=== PATIENT | male | born 1995 | race African-American/Black ===

== ENCOUNTER 2019-01-03 12:21 | Emergency (ER) | payer OTHER ==
--- OUTSIDE RECORDS SUMMARY | 2019-01-03 12:24 | XMS REPORT ---
:1995 Author Organization [facility] Address [address] [place] [address] Care Team Providers Name Role Phone ERIKA MENDOZA Unavailable Unavailable Problems This patient has no known problems. Allergies, Adverse Reactions, Alerts This patient has no known allergies or adverse reactions. Medications This patient has no known medications. Results Test Description Test Time Test Comments Text Results Atomic Results Result Comments CBC W/PLT COUNT & AUTO DIFFERENTIAL 2018-03-29 07:44:00 Test Item Value Reference Range Comments WHITE BLOOD CELL COUNT (BEAKER) (test dqti=911) 7.9 K/ L 3.5-10.5 RED BLOOD CELL COUNT (BEAKER) (test yvth=587) 4.64 M/ L 4.63-6.08 HEMOGLOBIN (BEAKER) (test zyai=148) 13.6 GM/DL 13.7-17.5 HEMATOCRIT (BEAKER) (test tlbb=238) 40.3 % 40.1-51.0 MEAN CORPUSCULAR VOLUME (BEAKER) (test ymum=750) 86.9 fL 79.0-92.2 MEAN CORPUSCULAR HEMOGLOBIN (BEAKER) (test oaow=699) 29.3 pg 25.7-32.2 MEAN CORPUSCULAR HEMOGLOBIN CONC (BEAKER) (test ugmb=883) 33.7 GM/DL 32.3- 36.5 RED CELL DISTRIBUTION WIDTH (BEAKER) (test ybju=152) 12.5 % 11.6-14.4 PLATELET COUNT (BEAKER) (test bcbj=220) 307 K/CU MM 150-450 MEAN PLATELET VOLUME (BEAKER) (test xxzy=040) 9.6 fL 9.4-12.4 NUCLEATED RED BLOOD CELLS (BEAKER) (test bnje=245) 0 /100 WBC 0-0 NEUTROPHILS RELATIVE PERCENT (BEAKER) (test kwib=819) 34 % LYMPHOCYTES RELATIVE PERCENT (BEAKER) (test egpb=026) 51 % MONOCYTES RELATIVE PERCENT (BEAKER) (test yijy=041) 7 % EOSINOPHILS RELATIVE PERCENT (BEAKER) (test dqmv=771) 7 % BASOPHILS RELATIVE PERCENT (BEAKER) (test azst=079) 1 % NEUTROPHILS ABSOLUTE COUNT (BEAKER) (test zztf=777) 2.72 K/ L 1.78-5.38 LYMPHOCYTES ABSOLUTE COUNT (BEAKER) (test ujfs=324) 4.05 K/ L 1.32-3.57 MONOCYTES ABSOLUTE COUNT (BEAKER) (test aian=083) 0.53 K/ L 0.30-0.82 EOSINOPHILS ABSOLUTE COUNT (BEAKER) (test gwqa=845) 0.51 K/ L 0.04-0.54 BASOPHILS ABSOLUTE COUNT (BEAKER) (test jnam=946) 0.07 K/ L 0.01-0.08 IMMATURE GRANULOCYTES-RELATIVE PERCENT (BEAKER) (test 0 % 0-1 rkzj=3969) BASIC METABOLIC [id number] 07:43:00 Test Item Value Reference Range Comments SODIUM (BEAKER) (test 139 meq/L 136-145 bsdv=079) POTASSIUM (BEAKER) (test 4.2 meq/L 3.5-5.1 ilfg=555) CHLORIDE (BEAKER) (test 104 meq/L 98-107 vegr=502) CO2 (BEAKER) (test 27 meq/L 22-29 ddni=049) BLOOD UREA NITROGEN 9 mg/dL 7-21 (BEAKER) (test ofaa=477) CREATININE (BEAKER) (test 0.91 mg/dL 0.57-1.25 oxfv=522) GLUCOSE RANDOM (BEAKER) 88 mg/dL 70-105 (test nbdh=050) CALCIUM (BEAKER) (test 9.3 mg/dL 8.4-10.2 hfxv=808) EGFR (BEAKER) (test 125 mL/min/1.73 sq m ESTIMATED GFR IS NOT ubva=7165) ACCURATE CREATININE CLEARANCE IN PREDICTING GLOMERULAR FILTRATION RATE. ESTIMATED GFR IS NOT APPLICABLE FOR DIALYSIS PATIENTS. PROTHROMBIN TIME/[id number] 07:37:00 Test Item Value Reference Range Comments PROTIME (BEAKER) (test ufey=381) 14.8 seconds 11.7-14.7 INR (BEAKER) (test fuht=502) 1.2 <=5.9 RECOMMENDED COUMADIN/WARFARIN INR THERAPY RANGESSTANDARD DOSE: 2.0 - 3.0 Includes: PROPHYLAXIS forvenous thrombosis, systemic embolization; TREATMENT for venous thrombosis and/or pulmonary embolus.HIGH RISK: Target INR is 2.5-3.5 for patients with mechanical heart valves.Within 24 hours, if on Coumadin
--- OUTSIDE RECORDS SUMMARY | 2019-01-03 12:24 | XMS REPORT | Clinical Summary ---
:1995 Author Organization [facility] Address [address] [place] [address] Care Team Providers Name Role Phone Unavailable Primary Care Provider Unavailable Allergies No Known Allergies Medications Medication Sig Dispensed Refills Start Date End Date Status aspirin 325 MG EC Take 325 mg by 0 Active tablet mouth daily. metoprolol Take 1 tablet (50 30 tablet 11 03/29/2018 03/29/2019 Active (TOPROL-XL) 50 MG 24 mg total) by hr tablet mouth daily. Active Problems Patient Care Coordination Note Problem List: 1) Hypertrophic Cardiomyopathy- previously cared for at the [facility] Diagnosed in February 2012 after syncopal episode while playing sports at high school 2) CVA R internal carotid thrombus noted at that time / acute stroke in the right internal capsule distribution in February 2012 2) Pediatric Echo ( [facility]) 01/13/2014 Mild concentric LVH Normal RV and LV systolic function LVEF ~ 69% by Aguilar biplane No RVOT obstruction 3) AICD implanted 08/2013 for VT Has had shocks since placed; last several weeks ago. 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 Javier Pike 02/03/2016 NSVT (nonsustained ventricular tachycardia) 02/03/2016 Encounters Date Type Specialty Care Team Description 03/29/2018 Anesthesia Event Juarez Hanley AA 03/29/2018 Surgery Harman Main MD EPS & ABLATION OF SVT W/ MAXIMILIAN 03/29/2018 Hospital Encounter Harman Main MD SVT (supraventricular tachycardia) (HCC) after 01/02/2018 Social History Tobacco Use Types Packs/Day Years Used Date Never Smoker Smokeless Tobacco: Never Used Sex Assigned at Date Recorded Not on file Job Start Date Occupation Industry Not on file Not on file Not on file Travel History Travel Start Travel End No recent travel history available. Last Filed Vital Signs Vital Sign Reading Time Taken Blood Pressure 137/77 03/29/2018 7:15 PM CDT Pulse 83 03/29/2018 7:15 PM CDT Temperature 36.2 C (97.1 F) 03/29/2018 7:50 AM CDT Respiratory Rate 16 03/29/2018 7:15 PM CDT Oxygen Saturation 98% 03/29/2018 2:15 PM CDT Inhaled Oxygen Concentration - - Weight 108.7 kg (239 lb 9.6 oz) 03/29/2018 7:50 AM CDT Height 185.4 cm (6' 1") 03/29/2018 7:50 AM CDT Body Mass Index 31.61 03/29/2018 7:50 AM CDT Plan of Treatment Health Maintenance Due Date Last Done Comments INFLUENZA VACCINE 08/19/2018 Procedures Procedure Name Priority Date/Time Associated Diagnosis Comments CARDIAC CATH REPORT - 04/01/2018 4:45 PM SCAN CDT ARRYTHMIA IMPLANT 04/01/2018 1:56 PM REPORT - SCAN CDT EPS & ABLATION OF SVT 03/29/2018 10:06 AM Ischemic cardiomyopathy W/ MAXIMILIAN CDT SOB (shortness of breath) Presence of cardiac pacemaker Case Notes (2) CASE POP6 MAC ANESTHESIA Special Needs REQ 10A START TIME ECG 12-LEAD Routine 03/29/2018 8:03 AM CDT CBC W/PLT COUNT & AUTO Routine 03/29/2018 7:17 AM CDT Results for this DIFFERENTIAL procedure are in the results section. CBC W/PLT COUNT & AUTO Routine 03/29/2018 7:17 AM CDT Results for this DIFFERENTIAL procedure are in the results section. BASIC METABOLIC PANEL (7) Routine 03/29/2018 7:17 AM CDT PROTHROMBIN TIME/INR Routine 03/29/2018 7:17 AM CDT after 01/02/2018 Results CARDIAC CATH REPORT - SCAN (04/01/2018 4:45 PM CDT) Narrative Performed At ARRYTHMIA IMPLANT REPORT - SCAN (04/01/2018 1:56 PM CDT) Narrative Performed At ECG 12 lead (03/29/2018 8:03 AM CDT) Narrative Performed At Ventricular Rate 67 BPM GE MUSE Atrial Rate 67 BPM P-R Interval 170 ms QRS Duration 100 ms Q-T Interval 388 ms QTC Calculation(Bazett) 409 ms P [place] 39 degrees R [place] 97 degrees T [place] -16 degrees Normal sinus rhythm with sinus arrhythmia Rightward axis T wave abnormality, consider inferior ischemia Abnormal ECG No previous ECGs available Confirmed by Lavinia Main Alireaz ([id number]) on 04/03/2018 2:22:17 PM Procedure Note Interface, External Ris In - 04/03/2018 2:22 PM CDT Ventricular Rate 67 BPM Atrial Rate 67 BPM P-R Interval 170 ms QRS Duration 100 ms Q-T Interval 388 ms QTC Calculation(Bazett) 409 ms P [place] 39 degrees R [place] 97 degrees T [place] -16 degrees Normal sinus rhythm with sinus arrhythmia Rightward axis T wave abnormality, consider inferior ischemia Abnormal ECG No previous ECGs available Confirmed by Lavinia Main Alireaz ([id number]) on 04/03/2018 2:22:17 PM Performing Organization Address City/State/[facility] Phone Number [email or web address] MUSE CBC with platelet count + automated diff (03/29/2018 7:17 AM CDT) WBC 7.9 3.5 - 10.5 K/L [facility] RBC 4.64 4.63 - 6.08 M/L [facility] Hemoglobin 13.6 (L) 13.7 - 17.5 GM/DL [facility] Hematocrit 40.3 40.1 - 51.0 % [facility] MCV 86.9 79.0 - 92.2 fL [facility] MCH 29.3 25.7 - 32.2 pg [facility] MCHC 33.7 32.3 - 36.5 GM/DL [facility] RDW 12.5 11.6 - 14.4 % [facility] Platelets 307 150 - 450 K/CU MM [facility] MPV 9.6 9.4 - 12.4 fL [facility] nRBC 0 0 - 0 /100 WBC [facility] % Neutros 34 % [facility] % Lymphs 51 % [facility] % Monos 7 % [facility] % Eos 7 % [facility] % Baso 1 % [facility] # Neutros 2.72 1.78 - 5.38 K/L [facility] # Lymphs 4.05 (H) 1.32 - 3.57 K/L [facility] # Monos 0.53 0.30 - 0.82 K/L [facility] # Eos 0.51 0.04 - 0.54 K/L [facility] # Baso 0.07 0.01 - 0.08 K/L [facility] Immature Granulocytes-Relative 0 0 - 1 % [facility] Specimen Blood Performing Organization Address City/State/Zipcode Phone Number [facility] [address] [place] [address] [phone] CENTER Prothrombin time/INR (03/29/2018 7:17 AM CDT) Protime 14.8 (H) 11.7 - 14.7 seconds [facility] INR 1.2 <=5.9 [facility] Specimen Blood Narrative Performed At [facility] RECOMMENDED COUMADIN/WARFARIN INR THERAPY RANGES STANDARD DOSE: 2.0 - 3.0 Includes: PROPHYLAXIS for venous thrombosis, systemic embolization; TREATMENT for venous thrombosis and/or pulmonary embolus. HIGH RISK: Target INR is 2.5-3.5 for patients with mechanical heart valves. Within 24 hours, if on Coumadin Performing Organization Address City/State/Zipcode Phone Number [facility] [address] [place] [address] [place] Basic metabolic panel (03/29/2018 7:17 AM CDT) Sodium 139 136 - 145 meq/L [facility] Potassium 4.2 3.5 - 5.1 meq/L [facility] Chloride 104 98 - 107 meq/L [facility] CO2 27 22 - 29 meq/L [facility] BUN 9 7 - 21 mg/dL [facility] Creatinine 0.91 0.57 - 1.25 mg/dL [facility] Glucose 88 70 - 105 mg/dL [facility] Calcium 9.3 8.4 - 10.2 mg/dL [facility] EGFR 125Comment: ESTIMATED GFR IS mL/min/1.73 sq m [facility] NOT ACCURATE CREATININE [facility] CLEARANCE IN PREDICTING GLOMERULAR FILTRATION RATE. ESTIMATED GFR IS NOT APPLICABLE FOR DIALYSIS PATIENTS. Specimen Blood Performing Organization Address [facility] Phone Number [facility] [address] [place] [address] [place] after 01/02/2018 Insurance Payer Benefit Plan / Subscriber ID Type Phone Address Group MEDICAID - MEDICAID MEDICAID [facility] STAR xxxxxxxxx Medicaid Contracted MGD CARE Advance Directives For more information, please contact:[address] [phone] Code Status Date Activated Date Inactivated Comments Full Code 03/29/2018 6:53 AM 03/29/2018 11:42 PM This code status was determined by: Patient
[2019-01-03 13:35] LABS: Absolute Lymphocytes (CBC) 3.5 K/uL (0.7-4.9); Absolute Monocytes 0.4 K/uL (0.1-1.3); Absolute Neutrophil 4.1 K/uL (1.8-8.0); Basophils % 0.7 % (0-1.3); Eosinophils % 10.9 % (0-4.4); Hematocrit 41.2 % (39.6-49.0); Lymphocytes % 38.8 % (15.3-44.8); MPV 7.9 fL (7.6-11.3); Monocytes % 4.4 % (3.3-12.3); RBC Red Blood Cell Count 4.76 M/uL (4.33-5.43)
[2019-01-03 13:44] LABS: Protime INR 1.09
[2019-01-03 13:54] LABS: ALT/SGPT 40 U/L (12-78); AST/SGOT 39 U/L (15-37); Alkaline Phosphatase 93 U/L (45-117); BUN Blood Urea Nitrogen 10 mg/dL (7-18); Bicarbonate 27 mmol/L (21-32); Bilirubin Direct 0.1 mg/dL (0-0.2); Bilirubin Total 0.4 mg/dL (0.2-1.0); Glucose Level 128 mg/dL (74-106); Potassium 3.5 mmol/L (3.5-5.1); Sodium Level 141 mmol/L (136-145)
[2019-01-03 13:55] LABS: Albumin 4.2 g/dL (3.4-5.0); NT PRO-BNP 5 pg/mL (<125); Protein, Total 8.2 g/dL (6.4-8.2); Troponin (Emerg Dept Use Only) < 0.02 ng/mL (0.0-0.045)
--- NOTE | 2019-01-03 14:10 | RAD REPORT ---
EXAM DESCRIPTION: RAD - Chest Single View - 01/03/2019 1:48 pm CLINICAL HISTORY: Chest pain, palpitation COMPARISON: None. TECHNIQUE: AP portable chest image was obtained 1338 hours . FINDINGS: Lungs are clear. Heart and vasculature are normal. No measurable pleural effusion and no p neumothorax. No acute bony abnormality seen. No acute aortic finding. Single lead pacemaker in place. IMPRESSION: No acute cardiopulmonary process.
--- NOTE | 2019-01-03 14:22 | EDPHYS ---
Physician Documentation [facility] Name: Elmer Palacio Age: 23 yrs Sex: Male : 1995 Arrival Date: 01/03/2019 Time: 12:27 Bed 8 Private MD: out of town, doctor ED Physician Mike Schwartz HPI: 01/03 13:07 This 23 yrs old Black Male presents to ER via Ambulatory with complaints of jr8 Palpitations, Dizziness. 13:07 The patient presents with a history of heart racing. Context: The symptoms occur with jr8 light activity. Onset: The symptoms/episode began/occurred acutely, today. Duration: The patient or guardian reports a single episode, that is now resolved. Modifying factors: The symptoms are aggravated by nothing. The symptoms are alleviated by nothing. Associated signs and symptoms: Pertinent positives: SOB, Pertinent negatives: chest pain. Severity of symptoms: At their worst the symptoms were mild in the emergency department the symptoms have resolved. The patient has not experienced similar symptoms in the past. The patient has not recently seen a physician. History of HOCM but has defibrillator and is on daily aspirin. Stated that he has been weed eating outside and noticed numbness to 1-4 digits to right hand which is the one he was using the machine with . Historical: - Allergies: 12:43 No Known Allergies; sv - PMHx: 12:43 Hypertrophic cardiomyopathy; sv - PSHx: 12:43 pacemaker with defibrillator; sv - Immunization history:: Adult Immunizations up to date. - Social history:: Smoking status: Patient/guardian denies using tobacco. - Ebola Screening: : No symptoms or risks identified at this time. ROS: 13:07 Eyes: Negative for injury, pain, redness, and discharge, ENT: Negative for injury, jr8 pain, and discharge, Neck: Negative for injury, pain, and swelling, Respiratory: Negative for shortness of breath, cough, wheezing, and pleuritic chest pain, Abdomen/GI: Negative for abdominal pain, nausea, vomiting, diarrhea, and constipation, Back: Negative for injury and pain, MS/Extremity: Negative for injury and deformity, Skin: Negative for injury, rash, and discoloration. 13:07 Cardiovascular: Positive for palpitations, Negative for chest pain, edema, orthopnea, paroxysmal nocturnal dyspnea. 13:07 Neuro: Positive for numbness, Negative for altered mental status, dizziness, gait disturbance, headache, hearing loss, loss of consciousness, seizure activity, speech changes, syncope, near syncope, tingling, tinnitus, tremor, visual changes, weakness. Exam: 13:07 Eyes: Pupils equal round and reactive to light, extra-ocular motions intact. Lids and jr8 lashes normal. Conjunctiva and sclera are non-icteric and not injected. Cornea within normal limits. Periorbital areas with no swelling, redness, or edema. ENT: Nares patent. No nasal discharge, no septal abnormalities noted. Tympanic membranes are normal and external auditory canals are clear. Oropharynx with no redness, swelling, or masses, exudates, or evidence of obstruction, uvula midline. Mucous membranes moist. Neck: Trachea midline, no thyromegaly or masses palpated, and no cervical lymphadenopathy. Supple, full range of motion without nuchal rigidity, or vertebral point tenderness. No Meningismus. Cardiovascular: Regular rate and rhythm with a normal S1 and S2. No gallops, murmurs, or rubs. Normal PMI, no JVD. No pulse deficits. Respiratory: Lungs have equal breath sounds bilaterally, clear to auscultation and percussion. No rales, rhonchi or wheezes noted. No increased work of breathing, no retractions or nasal flaring. Abdomen/GI: Soft, non-tender, with normal bowel sounds. No distension or tympany. No guarding or rebound. No evidence of tenderness throughout. Back: No spinal tenderness. No costovertebral tenderness. Full range of motion. Skin: Warm, dry with normal turgor. Normal color with no rashes, no lesions, and no evidence of cellulitis. MS/ Extremity: Pulses equal, no cyanosis. Neurovascular intact. Full, normal range of motion. Neuro: Awake and alert, GCS 15, oriented to person, place, time, and situation. Cranial nerves II-XII grossly intact. Motor strength 5/5 in all extremities. Sensory grossly intact. Cerebellar exam normal. Normal gait. Vital Signs: 12:43 BP 125 / 82; Pulse 85; Resp 18; Temp 97.8; Pulse Ox 97% ; Weight 108.86 kg; Height 6 sv ft. 0 in. (182.88 cm); Pain 0/10; 13:48 BP 131 / 84; Pulse 80; Resp 16 S; Pulse Ox 97% on R/A; jl7 14:44 BP 114 / 79; Pulse 81; Resp 16 S; Pulse Ox 98% on R/A; jl7 12:43 Body Mass Index 32.55 (108.86 kg, 182.88 cm) sv MDM: 12:58 Patient medically screened. 8 14:18 Differential diagnosis: arrythmia, dehydration, stress disorder, AR. Data reviewed: [facility] vital signs, nurses notes, lab test result(s), EKG, radiologic studies, plain films. Data interpreted: Pulse oximetry: on room air is 97 %. Interpretation: normal. Counseling: I had a detailed discussion with the patient and/or guardian regarding: the historical points, exam findings, and any diagnostic results supporting the discharge/admit diagnosis, lab results, radiology results, the need for outpatient follow up, a radiologist, to return to the emergency department if symptoms worsen or persist or if there are any questions or concerns that arise at home. ED course: Discussed with patient and family that there are no acute findings on labs, imaging, or ecg. Patient has had no arrhythmia on 4 lead monitoring while in ED. Has remained asymptomatic while in ED. Will d/c home to f/u with cardiology. If worse to come back for further evaluation. Patient and family good with this plan . 01/03 13:10 Order name: Basic Metabolic Panel; Complete Time: 14:01/03 13:10 Order name: CBC with Diff; Complete Time: 14:01/03 13:10 Order name: LFT's; Complete Time: 14:01/03 13:10 Order name: Magnesium; Complete Time: 14:01/03 13:10 Order name: NT PRO-BNP; Complete Time: 14:01/03 13:10 Order name: PT-INR; Complete Time: 14:01/03 12:46 Order name: EKG - Nurse/Tech; Complete Time: 13:11 01/03 12:46 Order name: EKG; Complete Time: 12:47 01/03 13:10 Order name: Troponin (emerg Dept Use Only); Complete Time: 14:01/03 13:10 Order name: XRAY Chest (1 view); Complete Time: 14:11 15 13:10 Order name: Cardiac monitoring; Complete Time: 13:11 8 01/03 13:10 Order name: IV Saline Lock; Complete Time: 13:28 8 01/03 13:10 Order name: Labs collected and sent; Complete Time: 13:11 8 01/03 13:10 Order name: O2 Per Protocol; Complete Time: 13:11 8 01/03 13:10 Order name: O2 Sat Monitoring; Complete Time: 13: Administered Medications: No medications were administered Disposition: 01/03/19 14:20 Discharged to Home. Impression: Palpitations. - Condition is Stable. - Discharge Instructions: Palpitations. - Medication Reconciliation Form, Thank You Letter, Antibiotic Education, Prescription Opioid Use, Work release form form. - Follow up: Private Physician; When: 2 - 3 days; Reason: Recheck today's complaints, Continuance of care, Re-evaluation by your physician. - Problem is new. - Symptoms have improved. Addendum: 01/06/2019 05:28 Co-signature as Attending Physician, Mike Schwartz MD I agree with the assessment and c voss plan of care. Signatures: Dispatcher [employer] Yu Villavicencio, RN RN Mike Taylor MD MD cha Roszak, Josh, PA PA jr8 Janene Apodaca RN RN jl7 Corrections: (The following items were deleted from the chart) 01/03 14:48 14:20 01/03/2019 14:20 Discharged to Home. Impression: Palpitations. Condition is jl7 Stable. Forms are Medication Reconciliation Form, Thank You Letter, Antibiotic Education, Prescription Opioid Use. Follow up: Private Physician; When: 2 - 3 days; Reason: Recheck today's complaints, Continuance of care, Re-evaluation by your physician. Problem is new. Symptoms have improved. jr8
--- NOTE | 2019-01-03 14:22 | ER ---
Nurse's Notes [facility] Name: Elmer Palacio Age: 23 yrs Sex: Male : 1995 Arrival Date: 01/03/2019 Time: 12:27 Bed 8 Private MD: out of town, doctor Diagnosis: Palpitations Presentation: 01/03 12:41 Presenting complaint: Patient states: dizziness, palpitation started today while sv working outside with weedeating. Pt also reports numbness to the right 1st, 2nd, 3rd fingers x 4 days. Transition of care: patient was not received from another setting of care. Onset of symptoms is unknown. Care prior to arrival: None. 12:41 Method Of Arrival: Ambulatory sv 12:41 Acuity: MAXIMILIAN 3 sv 12:45 Risk Assessment: Do you want to hurt yourself or someone else? Patient reports no jl7 desire to harm self or others. Initial Sepsis Screen: Does the patient meet any 2 criteria? No. Patient's initial sepsis screen is negative. Does the patient have a suspected source of infection? No. Patient's initial sepsis screen is negative. Triage Assessment: 12:44 General: Appears in no apparent distress. comfortable, Behavior is calm, cooperative, sv appropriate for age. Pain: Denies pain. Neuro: Level of Consciousness is awake, alert, obeys commands, Oriented to person, place, time, situation, Gait is steady, Reports tingling to the right 1st, 2nd, 3rd digits. Respiratory: Respiratory effort is even, unlabored, Respiratory pattern is regular, symmetrical. Historical: - Allergies: 12:43 No Known Allergies; sv - PMHx: 12:43 Hypertrophic cardiomyopathy; sv - PSHx: 12:43 pacemaker with defibrillator; sv - Immunization history:: Adult Immunizations up to date. - Social history:: Smoking status: Patient/guardian denies using tobacco. - Ebola Screening: : No symptoms or risks identified at this time. Screenin:15 Abuse screen: Denies threats or abuse. Denies injuries from another. Nutritional jl7 screening: No deficits noted. Tuberculosis screening: No symptoms or risk factors identified. Fall Risk IV access (20 points). Total Lock Fall Scale indicates No Risk (0-24 pts). Assessment: 12:45 General: Appears in no apparent distress. uncomfortable, Behavior is calm, cooperative, jl7 appropriate for age. Pain: Denies pain. Neuro: Level of Consciousness is awake, alert, obeys commands, Oriented to person, place, time, situation. Cardiovascular: Heart tones S1 S2 present. Respiratory: Airway is patent Respiratory effort is even, unlabored, Respiratory pattern is regular, symmetrical. GI: No signs and/or symptoms were reported involving the gastrointestinal system. : No signs and/or symptoms were reported regarding the genitourinary system. EENT: No signs and/or symptoms were reported regarding the EENT system. Derm: Skin is pink, warm \T\ dry. Musculoskeletal: No signs and/or symptoms reported regarding the musculoskeletal system. 13:45 Reassessment: Patient appears in no apparent distress at this time. No changes from jl7 previously documented assessment. Patient and/or family updated on plan of care and expected duration. Pain level reassessed. Patient is alert, oriented x 3, equal unlabored respirations, skin warm/dry/pink. Vital Signs: 12:43 BP 125 / 82; Pulse 85; Resp 18; Temp 97.8; Pulse Ox 97% ; Weight 108.86 kg; Height 6 sv ft. 0 in. (182.88 cm); Pain 0/10; 13:48 BP 131 / 84; Pulse 80; Resp 16 S; Pulse Ox 97% on R/A; jl7 14:44 BP 114 / 79; Pulse 81; Resp 16 S; Pulse Ox 98% on R/A; jl7 12:43 Body Mass Index 32.55 (108.86 kg, 182.88 cm) sv ED Course: 12:27 Patient arrived in ED. mr 12:28 out of town, doctor is Private Physician. mr 12:42 Triage completed. sv 12:45 Janene Apodaca, RN is Primary Nurse. jl7 12:45 Arm band placed on. sv 12:45 Patient has correct armband on for positive identification. Placed in gown. Bed in low jl7 position. Call light in reach. Side rails up X 1. monitor and storage bin tender on. Pulse ox on. NIBP on. Warm blanket given. 12:58 Mauro Gil PA is PHCP. jr8 12:58 Mike Schwartz MD is Attending Physician. jr8 13:06 EKG done, by body shop technician. reviewed by Mauro WILDE. at1 13:29 Initial lab(s) drawn, by me, sent to lab. Inserted saline lock: 20 gauge in right jl7 antecubital area, using aseptic technique. Blood collected. 13:47 XRAY Chest (1 view) In Process Unspecified. EDMS 14:47 No provider procedures requiring assistance completed. IV discontinued, intact, jl7 bleeding controlled, No redness/swelling at site. Pressure dressing applied. Administered Medications: No medications were administered Outcome: 14:20 Discharge ordered by . rosy 14:47 Discharged to home ambulatory, with family. jl7 14:47 Condition: stable 14:47 Discharge instructions given to patient, family, Instructed on discharge instructions, follow up and referral plans. Demonstrated understanding of instructions, follow-up care. 14:48 Patient left the ED. jl7 Signatures: Dispatcher [employer] EDYu Coelho, RN RN Khadijah Wright mr LouiseMauro PA PA jr8 Robyn Frances, air traffic instructor EKG Tat1 Janene Apodaca RN RN jl7 Corrections: (The following items were deleted from the chart) 12:45 12:43 Temp 97.8F; 108.86 kg; Height 6 ft. 0 in.; BMI: 32.5; Pain 0/10; sv sv
--- NOTE | 2019-01-03 16:20 | EKG ---
Test Date: 2019-01-03 Test Time: 12:58:22 [employer] Worker: TATIANA MEASUREMENT RESULTS: Intervals: Rate: 85 MT: 156 QRSD: 100 QT: 372 QTc: 442 [place]: P: 50 MT: 156 QRS: 95 T: -17 INTERPRETIVE STATEMENTS: Normal sinus rhythm Rightward axis T wave abnormality, consider inferior ischemia Abnormal ECG No previous ECG available for comparison Electronically Signed On 01-03-19 16:18:18 LEATHER SCRUBBER by Emeterio Fairchild
== END 2019-01-03 14:48 | disposition home or self-care (01) ==
LOC: ER 12:21
DX: R00.2 Palpitations (principal); I10 Essential (primary) hypertension; Z95.810 Presence of automatic (implantable) cardiac defibrillator
CPT/HCPCS: 36415; 71045; 80048; 80076; 83735; 83880; 84484; 85025; 85610; 93005; 99284